=== PATIENT | male | born 1995 | race Two or more races ===

== ENCOUNTER 2017-02-23 01:27 | Emergency (ER) | payer OTHER ==
[2017-02-23 01:34] VITALS: RESP 18
[2017-02-23 02:00] VITALS: O2SAT 96
[2017-02-23] MEDS ORDERED: BENZONATATE 100 MG CAP PO ONE (02:06)
[2017-02-23] MEDS ORDERED: IPRATROPIUM/ALBUTEROL 3 ML DEYVIAL IH ONE (02:06)
[2017-02-23] MEDS ORDERED: IPRATROPIUM/ALBUTEROL 3 ML DEYVIAL ONE (02:07)
[2017-02-23] MEDS ORDERED: ALBUTEROL INH PREPACK MDI TAKEHOME ONE (02:35)
--- NOTE | 2017-02-23 02:35 | EDPHY ---
H & P Stated Complaint: COUGHING 1 WEEK Time Seen by Provider: 02/23/17 02:01 HPI/ROS: HPI The patient presents with cough for the last 1 week that has been mostly productive with a clear yellowish sputum. It has been constant, though slightly worse at night. He does not have any chest pain or shortness of breath. He initially had rhinorrhea, however this is resolved. He denies any fever or sick contacts. REVIEW OF SYSTEMS Constitutional: No fever, no chills. Eyes: No discharge. ENT: No sore throat. Cardiovascular: No chest pain, no palpitations. Respiratory: Positive for cough, no shortness of breath. Gastrointestinal: No abdominal pain, no vomiting. Genitourinary: No hematuria. Musculoskeletal: No back pain. Skin: No rashes. Neurological: No headache. PMHx: History of seasonal allergies Soc Hx: [employer] student PHYSICAL General Appearance: Alert, no distress Eyes: Pupils equal and round no pallor or injection ENT, Mouth: Mucous membranes moist Respiratory: There are no retractions, breathing comfortably, diminished breath sounds of right mid lung field Cardiovascular: Tachycardic rate and regular rhythm Gastrointestinal: Abdomen is soft and non-tender, no masses, bowel sounds normal Neurological: A&O, moves all extremities Skin: Warm and dry, no rashes Musculoskeletal: Neck is supple non tender Extremities: symmetrical, full range of motion Psychiatric: Patient is oriented X 3, there is no agitation Source: Patient Exam Limitations: No limitations - Personal History Current Tetanus/Diphtheria Vaccine: Yes Current Tetanus Diphtheria and Acellular Pertussis (TDAP): Yes - Medical/Surgical History Hx Asthma: Yes Hx Chronic Respiratory Disease: No Hx Diabetes: No Hx Cardiac Disease: No Hx Renal Disease: No Hx Cirrhosis: No Hx Alcoholism: No Hx HIV/AIDS: No Hx Splenectomy or Spleen Trauma: No - Social History Smoking Status: Never smoked Constitutional: Initial Vital Signs Temperature (C) 36.8 C 02/23/17 01:30 Heart Rate 122 H 02/23/17 01:30 Respiratory Rate 18 02/23/17 01:30 Blood Pressure 164/104 H 02/23/17 01:30 O2 Sat (%) 97 02/23/17 01:30 O2 Delivery Mode Room Air Allergies/Adverse Reactions: No Known Allergies Allergy (Unverified 02/23/17 01:29) Home Medications: Medication Instructions Recorded Albuterol 12/17/17 Benzonatate [Tessalon Pearles (RX)] 100 mg PO Q6H PRN #30 cap 02/23/17 levOFLOXACIN [Levofloxacin] 750 mg PO DAILY #5 tablet 02/23/17 Medical Decision Making - Diagnostics Imaging Results: Chest x-ray two view shows faint retrocardiac infiltrate, interpreted by me, radiology interpretation is pending. Imaging: I viewed and interpreted images myself Differential Diagnosis: This is a 21-year-old male who presents with 1 week of cough. On exam, he is initially tachycardic, however this resolved during his time here. His lungs demonstrate decreased breath sounds on the right as compared to left. Chest x- ray performed shows possible right-sided infiltrate, I feel he may have an early pneumonia. I will treat him with Levaquin for community-acquired pneumonia. He was given an albuterol treatment here with improvement in his symptoms. Thus, I will send him home with an albuterol inhaler. He was given return precautions. He will be discharged in good condition. Differential diagnosis includes viral URI, pneumonia, less likely pneumothorax. - Data Points Medications Given: Discontinued Medications Albuterol Sulfate (Proventil Inh Prepack) 1 mdi TAKEHOME EDNOW ONE Stop: 02/23/17 02:36 Last Admin: 02/23/17 02:42 Dose: 1 mdi Albuterol/Ipratropium (Duoneb) 3 ml IH EDNOW ONE Stop: 02/23/17 02:07 Last Admin: 02/23/17 02:10 Dose: 3 ml Benzonatate (Tessalon Pearles) 100 mg PO EDNOW ONE Stop: 02/23/17 02:07 Last Admin: 02/23/17 02:10 Dose: 100 mg Levofloxacin (Levaquin) 750 mg PO EDNOW ONE PRN Reason: Protocol Stop: 02/23/17 02:36 Last Admin: 02/23/17 02:42 Dose: 750 mg Departure - Departure Disposition: Home, Routine, Self-Care Clinical Impression: Pneumonia Qualifiers: Pneumonia type: due to unspecified organism Laterality: right Lung location: lower lobe of lung Qualified Code(s): J18.1 - Lobar pneumonia, unspecified organism Condition: Good Instructions: Community Acquired Pneumonia (ED) Additional Instructions: Please take the antibiotic as prescribed. You should return to the emergency department if your worse in any way. Referrals: [facility],. [Clinic] - As per Instructions Prescriptions: Benzonatate [Tessalon Pearles (RX)] 100 mg PO Q6H PRN #30 cap PRN Reason: Cough, Mild levOFLOXACIN [Levofloxacin] 750 mg PO DAILY #5 tablet
[2017-02-23 02:52] VITALS: BP 142/106; PULSE 116; TEMP 98.4
== END 2017-02-23 02:52 | disposition home or self-care (01) ==
DX: J18.1 Lobar pneumonia, unspecified organism (principal); J45.909 Unspecified asthma, uncomplicated

== ENCOUNTER 2017-03-20 14:17 | Emergency (ER) | payer OTHER ==
[2017-03-20] MEDS ORDERED: NS 1,000 ML IV ONE (14:39)
[2017-03-20] MEDS ORDERED: HYDROCODONE/APAP 5/325 TAB PO ONE (14:44)
--- NOTE | 2017-03-20 14:52 | EDPHY ---
General Narrative: CHIEF COMPLAINT: Cough HISTORY OF PRESENT ILLNESS: Patient complains of 2-3 days history of cough. This is a severe cough and constant duration. Associated with malaise, body aches and nausea vomiting. No chest pain. No shortness of breath. No abdominal urinary complaints. No rash or lesions. No neck pain or stiffness. No headache. He was treated for pneumonia on February 23. He completed this care felt well until several days ago. He did not receive a flu vaccine this year. No other associated complaints or modifying factors. REVIEW OF SYSTEMS: Ten systems reviewed and are negative unless otherwise noted in the HPI PCP: None locally SPECIALISTS: None PAST MEDICAL HISTORY: Recent community-acquired pneumonia PAST SURGICAL HISTORY: None recently SOCIAL HISTORY: Nonsmoker. No alcohol or drug use. He is a community college student. Originally from [facility] FAMILY HISTORY: Noncontributory EXAMINATION General Appearance: Alert, no distress Head: normocephalic, atraumatic Eyes: Pupils equal and round, no conjunctival pallor or injection ENT, Mouth: Mucous membranes moist. Airway widely. No erythema or edema. Neck: Normal inspection, supple, non-tender no meningeal signs. Painless range of motion in all planes. Respiratory: Scattered rhonchi. No wheezing pill crackles. No diminishment or distress. Cardiovascular: Tachycardic rate, 112bpm. Regular rhythm. No murmur Gastrointestinal: Obese Abdomen is soft and nontender Back: non-tender, no bony abnormalities Neurological: GCS 15 A&O, nonfocal, normal gait Skin: Warm and dry, no rash. No petechiae or purpura Extremities: Nontender, no pedal edema Psychiatric: Mood and affect normal DIFFERENTIAL DIAGNOSES: Including but not limited to pneumonia, bronchitis, influenza MDM: 2:45 p.m. Cough of 2 days duration. This is associated with body aches, malaise and vomiting. No active vomiting during my examination. He is tachycardic. He is not tachypneic or hypoxic. He is not febrile. He does not meet SIRS criteria. I reviewed his previous ED admission and chest x-ray. He is in no acute distress at this time. I have ordered IV fluid, laboratory studies, influenza and chest x-ray. 3:05 p.m. I have reviewed the chest x-ray. And the radiologist has read the chest x-ray is no evidence of pneumonia. 3:30 p.m. CBC unremarkable. Likely diagnosis is bronchitis, suspected viral etiology. I have ordered Decadron 8 mg for this. Remainder laboratory is pending. 4:05 p.m. I have re-evaluated the patient. His laboratory studies are negative for any acute findings and are suggestive of viral etiology. Influenza test is negative. Chest x-ray clear. Heart rate is now within normal limits and his oxygenation remains 94-96% on room air. He does not need supplemental oxygen. I do feel this is likely a viral bronchitis. I would like to treat him with further steroid therapy burst treatment, antitussive, increase fluid and re- evaluation shortly. We discussed ED precautions. We discussed over-the- counter medications. He is comfortable this plan and discharged home in stable condition. SUPERVISION: Patient was independently examined, but I discussed the case with my secondary supervising physician Dr. Askew - Diagnostics Imaging Results: Imaging Impressions Chest X-Ray 03/20/17 14:38 Impression: No definite pneumonia. - History Smoking Status: Never smoked - Objective Vital Signs: Initial Vital Signs Temperature (C) 98.4 F 03/20/17 14:20 Heart Rate 120 H 03/20/17 14:20 Respiratory Rate 20 03/20/17 14:20 Blood Pressure 103/68 03/20/17 14:20 O2 Sat (%) 98 03/20/17 14:20 O2 Delivery Mode Room Air Allergies/Adverse Reactions: No Known Allergies Allergy (Verified 03/20/17 14:19) Home Medications: Medication Instructions Recorded Albuterol 02/23/17 Benzonatate [Tessalon Pearles (RX)] 100 mg PO Q6H PRN #30 cap 02/23/17 Benzonatate [Tessalon Pearles (RX)] 100 mg PO Q8 PRN #15 cap 03/20/17 Hydrocodone/APAP 5/325 [[place] 1 - 2 tab PO Q4H PRN #13 tab 03/20/17 5/325 (*)] predniSONE [Deltasone] 60 mg PO DAILY #15 tablet 03/20/17 Laboratory Results: Laboratory Results 03/20/17 14:50 03/20/17 14:50 03/20/17 03/20/17 03/20/17 14:50 14:50 14:50 WBC 10.67 10^3/uL H 10^3/uL (3.80-9.50) RBC 5.95 10^6/uL 10^6/uL (4.40-6.38) Hgb 15.8 g/dL g/dL (13.7-17.5) Hct 45.0 % % (40.0-51.0) MCV 75.6 fL L fL (81.5-99.8) MCH 26.6 pg L pg (27.9-34.1) MCHC 35.1 g/dL g/dL (32.4-36.7) RDW 13.7 % % (11.5-15.2) Plt Count 364 10^3/uL 10^3/uL (150-400) MPV 11.2 fL fL (8.7-11.7) Neut % (Auto) 53.8 % % (39.3-74.2) Lymph % (Auto) 36.1 % % (15.0-45.0) Sabine % (Auto) 7.7 % % (4.5-13.0) Eos % (Auto) 1.4 % % (0.6-7.6) Baso % (Auto) 0.7 % % (0.3-1.7) Nucleat RBC Rel Count 0.0 % % (0.0-0.2) Absolute Neuts (auto) 5.75 10^3/uL 10^3/uL (1.70-6.50) Absolute Lymphs (auto) 3.85 10^3/uL H 10^3/uL (1.00-3.00) Absolute Monos (auto) 0.82 10^3/uL H 10^3/uL (0.30-0.80) Absolute Eos (auto) 0.15 10^3/uL 10^3/uL (0.03-0.40) Absolute Basos (auto) 0.07 10^3/uL 10^3/uL (0.02-0.10) Absolute Nucleated RBC 0.00 10^3/uL 10^3/uL (0-0.01) Immature Gran % 0.3 % % (0.0-1.1) Immature Gran # 0.03 10^3/uL 10^3/uL (0.00-0.10) Sodium 146 mEq/L H mEq/L (135-145) Potassium 4.7 mEq/L mEq/L (3.5-5.2) Chloride 112 mEq/L H mEq/L (97-110) Carbon Dioxide 17 mEq/l L mEq/l (22-31) Anion Gap 17 mEq/L H mEq/L (8-16) BUN 12 mg/dL mg/dL (7-23) Creatinine 0.9 mg/dL mg/dL (0.7-1.3) Estimated GFR > 60 Glucose 117 mg/dL H mg/dL (70-100) Calcium 10.1 mg/dL mg/dL (8.5-10.4) Specimen Hemolysis 122 Nasal Influenza A PCR NEGATIVE FOR FLU A (NEGATIVE) Nasal Influenza B PCR NEGATIVE FOR FLU B (NEGATIVE) Medications Given: Discontinued Medications Hydrocodone Bitart/Acetaminophen ([place] 5/325) 1 tab PO EDNOW ONE Stop: 03/20/17 14:45 Last Admin: 03/20/17 15:08 Dose: 1 tab Dexamethasone (Decadron) 8 mg PO EDNOW ONE Stop: 03/20/17 15:32 Last Admin: 03/20/17 16:00 Dose: 8 mg Sodium Chloride (Ns) 1,000 mls @ 0 mls/hr IV EDNOW ONE; Wide Open PRN Reason: Protocol Stop: 03/20/17 14:40 Last Admin: 03/20/17 15:13 Dose: 1,000 mls Departure - Departure Disposition: Home, Routine, Self-Care Clinical Impression: Acute bronchitis Qualifiers: Bronchitis organism: unspecified organism Qualified Code(s): J20.9 - Acute bronchitis, unspecified Condition: Good Instructions: Acute Bronchitis (ED) Additional Instructions: 1. Medications as prescribed to completion 2. [id number] dextromethorphan every 12 hr as needed 3. Contact the on-call primary care physician to establish an for outpatient care 4. ED precautions as discussed Referrals: Chalo Sal[place] [place] - As per Instructions Prescriptions: Benzonatate [Tessalon Pearles (RX)] 100 mg PO Q8 PRN #15 cap PRN Reason: Cough, Mild Hydrocodone/APAP 5/325 [[place] 5/325 (*)] 1 - 2 tab PO Q4H PRN #13 tab PRN Reason: Cough, Mild predniSONE [Deltasone] 60 mg PO DAILY #15 tablet
[2017-03-20 15:16] LABS: PLATELET COUNT 364 10^3/uL (150-400)
[2017-03-20] MEDS ORDERED: DEXAMETHASONE 4 MG TAB PO ONE (15:31)
[2017-03-20 16:03] VITALS: BP 138/91; PULSE 94; RESP 18; O2SAT 97
[2017-03-20 16:08] VITALS: TEMP 98.1
== END 2017-03-20 16:16 | disposition home or self-care (01) ==
DX: J20.9 Acute bronchitis, unspecified (principal); E86.9 Volume depletion, unspecified

== ENCOUNTER 2017-04-14 20:02 | Emergency (ER) | payer OTHER ==
[2017-04-14 20:16] VITALS: TEMP 99.5
--- NOTE | 2017-04-14 23:03 | EDPHY ---
H & P Time Seen by Provider: 04/14/17 20:32 HPI/ROS: HPI Cough, congestion. 21-year-old male by private vehicle. He complains of cough with nasal congestion and and clear rhinorrhea ongoing for 3 days. No muscle aches or joint aches. Denies fever. No other associated signs or symptoms. He reports he has been seen here twice before in the emergency department once about 3 weeks ago and before that 3 months ago for the same complaint. He was diagnosed with pneumonia the 1st time and diagnosed with a reactive airway disease process the 2nd time. ROS: Constitutional: No fever, no chills. No weakness. Eyes: No discharge. No changes in vision. ENT: No sore throat. As above. Respiratory: As above. No shortness of breath. Cardiac: No chest pain, no palpitations. Gastrointestinal: No abdominal pain, no vomiting, no diarrhea. Genitourinary: No hematuria. No dysuria or increased frequency with urination. Musculoskeletal: No back pain. No neck pain. No myalgias or arthralgias. Skin: No rashes. Neurological: No headache. No focal weakness or altered sensation. Past medical history: Pneumonia, as above. Social history: Nonsmoker. He is a student. Denies alcohol. Physical Exam: General Appearance: Alert, no distress. Obese habitus. This patient is responding to questions appropriately and in full sentences. This patient appears well-hydrated and well-nourished. Eyes: Pupils equal and round no pallor or injection. No lid edema, erythema or injection. Respiratory: There are no retractions, lungs are clear to auscultation with good air movement bilaterally. No tachypnea. Cardiovascular: Regular rate and rhythm. Borderline tachycardia. No murmur. Neurological: Motor sensory function is grossly intact. Cranial nerves are normal. Gait is normal. Skin: Warm and dry, no rashes. Musculoskeletal: Neck is supple and nontender. Extremities are symmetrical. All joints range without pain or impingement. Psychiatric: No agitation. No depression. Database: EKG: Imaging: Chest x-ray PA and lateral; the cardiac mediastinal silhouette is unremarkable. No evidence of infiltrate or pneumothorax. No acute cardiopulmonary disease process noted. Interpreted by me. Procedures: Emergency department course: Vital signs reviewed. Patient tachycardic and moderately hypertensive in triage. Temperature 37.2 degrees. Chest x-ray and respiratory pathogen panel ordered from triage. Patient is influenza negative. Respiratory pathogen panel positive for RSV. 11:00 p.m., patient re-evaluated. Resting comfortably at this time. He has been given 200 mg of Tessalon Perle. I discussed using an albuterol inhaler to help him with his cough. He reports that he has this at home and has been using it. This also is likely contributing to his tachycardia. He understands the dosing and how to use it. He at this time he feels comfortable going home. Pulse oximetry is currently 94% on room air. monitor and storage bin tender shows a narrow complex sinus rhythm ventricular rate of 95. I recommended the patient follow up with his primary care physician tomorrow for re-evaluation. I will prescribe him Tessalon Perle for cough. Return to emergency department precautions were thoroughly reviewed with him. All of his questions were answered. He was discharged in good condition. Differential Diagnosis: The differential diagnosis on this patient includes but is not limited to viral bronchitis. Influenza, pneumonia unlikely. This represents a partial list of diagnoses considered. These considerations are based on history, physical exam , past history, reassessment and diagnostic testing. Smoking Status: Never smoked Constitutional: Initial Vital Signs Temperature (C) 37.5 C 04/14/17 20:13 Heart Rate 128 H 04/14/17 20:13 Respiratory Rate 18 04/14/17 20:13 Blood Pressure 165/98 H 04/14/17 20:13 O2 Sat (%) 94 04/14/17 20:13 O2 Delivery Mode Room Air Allergies/Adverse Reactions: No Known Allergies Allergy (Verified 04/14/17 20:15) Home Medications: Medication Instructions Recorded Benzonatate [Tessalon Pearles] 100 mg PO TID #12 cap 04/14/17 Medical Decision Making - Data Points Medications Given: Discontinued Medications Benzonatate (Tessalon Pearles) 200 mg PO EDNOW ONE Stop: 04/14/17 23:07 Last Admin: 04/14/17 23:12 Dose: 200 mg Departure - Departure Disposition: Home, Routine, Self-Care Clinical Impression: RSV bronchitis Condition: Good Instructions: Respiratory Syncytial Virus (ED), Acute Bronchitis (ED) Additional Instructions: Read and follow provided instructions. Follow-up with your primary care physician tomorrow for re-evaluation as discussed. Take medication as prescribed for cough. Albuterol meter dose inhaler: 1-2 puffs every 2-4 hours as needed for cough and shortness of breath. Return to the emergency department for worsening symptoms, worsening cough, high fever, any difficulty breathing or other serious concerns. Referrals: NONE *PRIMARY CARE P,. [Primary Care Provider] - As per Instructions Stand Alone Forms: School Excuse Prescriptions: Benzonatate [Tessalon Pearles] 100 mg PO TID #12 cap
[2017-04-14] MEDS ORDERED: BENZONATATE 100 MG CAP PO ONE (23:06)
[2017-04-14 23:14] VITALS: BP 157/85; PULSE 108; RESP 16; O2SAT 95
== END 2017-04-15 00:15 | disposition home or self-care (01) ==
DX: J20.5 Acute bronchitis due to respiratory syncytial virus (principal)